=== PATIENT | male | born 1990 | race Caucasian/White ===

== ENCOUNTER 2018-01-15 18:22 | Emergency (ER) | payer OTHER ==
[~2018-01-15] VITALS: Ht 185.4 cm; Wt 108.9 kg
[2018-01-15 19:20] LABS: Basophils # (auto) 0 uL; Eosinophils # (auto) 0.1 uL; Monocytes # (auto) 0.6 uL; Nucleated Red Blood Cells % 0.1 %
[2018-01-15 19:22] LABS: Basophils % (auto) 0.3 % (0.0-2.0); Hematocrit 50.7 % (41.0-53.0); Hemoglobin 17.3 g/dL (13.5-17.5); Lymphocytes # (auto) 2.3 uL; Lymphocytes % (auto) 25.3 % (10.0-50.0); Mean Corpuscular Hgb Conc. 34.1 g/dL (32.0-36.0); Mean Corpuscular Volume 82.3 fL (80.0-100.0); Monocytes % (auto) 6.9 % (0.0-12.0); Neutrophils # (auto) 6.1 uL; Neutrophils % (auto) 66.5 % (37.0-80.0); Platelet Count (auto) 266 10^3/uL (140-450); Red Blood Cells 6.16 10^6/uL (4.5-5.90); Red Cell Distribution Width 14.1 % (11.8-14.3); White Blood Cell 9.2 10^3/uL (4.4-10.8)
[2018-01-15 19:28] LABS: INR 1.01 (0.9-1.15); Partial Thromboplastin Time 35.2 sec (23.78-33.04); Prothrombin Time 10.8 sec (9.27-12.13)
[2018-01-15 19:43] LABS: Albumin 4.2 g/dL (3.4-5.0); BUN/Creatinine Ratio 8.1; Calcium 9.5 mg/dL (8.5-10.1); Potassium 3.8 mmol/L (3.5-5.1)
[2018-01-15 19:45] LABS: Bilirubin, Total 0.5 mg/dL (0.2-1.0); Total Protein 8.5 g/dL (6.4-8.2)
[2018-01-15] MEDS ORDERED: HYDROcodone-ACET 5/325MG TAB PO ONE (21:30)
[2018-01-15 21:59] VITALS: BP 142/95
== END 2018-01-15 22:24 | disposition home or self-care (01) ==
LOC: ER 18:22
DX: M10.071 Idiopathic gout, right ankle and foot (principal); F12.10 Cannabis abuse, uncomplicated
CPT/HCPCS: 36415; 73630; 80053; 84550; 85025; 85610; 85730

== ENCOUNTER → 2019-05-04 | Outpatient (CLI) | payer OTHER | END | disposition home or self-care (01) | LOC: LAB 12:47 | PROVIDERS: ATTEND Internal Medicine Gastroenterology | DX: R19.7 Diarrhea, unspecified (principal) | CPT/HCPCS: 82784; 83516; 86255 ==